=== PATIENT | male | born 1990 | race Caucasian/White ===

== ENCOUNTER 2017-10-10 12:44 | Emergency (ER) | payer OTHER ==
[2017-10-10 13:18] VITALS: BP 115/72; PULSE 82; RESP 18; TEMP 98.8
--- NOTE | 2017-10-10 13:57 | ED ---
General Adult HPI - General Chief complaint: ENT Stated complaint: ear infection Time Seen by Provider: 10/10/17 13:30 Source: patient, RN notes reviewed Mode of arrival: ambulatory Limitations: no limitations - History of Present Illness Initial comments: 27-year-old male presents to the emergency department for chief complaint of right ear pain. Patient states it started to feel plugged yesterday and the pain started when he woke up this morning. Patient states she has had congestion for about one week. He states the congestion is getting better but the ear pain is new. Patient denies any cough or shortness of breath. Patient denies any sore throat or eye pain. Patient denies asthma but he is a smoker. Patient has no other complaints at this time. Patient denies fevers at home. Patient denies shortness of breath, chest pain, abdominal pain, nausea or vomiting. - Related Data Previous Rx's Medication Instructions Recorded Ciprofloxacin HCl [Cipro] 500 mg PO Q12HR #6 tablet 07/18/15 Ondansetron Odt [Zofran ODT] 4 mg PO Q8HR PRN #5 tab 07/18/15 Amoxicillin 875 mg PO Q12HR #20 tablet 10/10/17 Fluticasone Nasal [place] [Flonase 2 spr EA NOSTRIL DAILY #1 bottle 10/10/17 Nasal [place]] Allergies Allergy/AdvReac Type Severity Reaction Status Date / Time No Known Allergies Allergy Verified 10/10/17 13:16 Review of Systems ROS Statement: Those systems with pertinent positive or pertinent negative responses have been documented in the HPI. ROS Other: All systems not noted in ROS Statement are negative. Past Medical History Additional Past Medical History / Comment(s): back pain History of Any Multi-Drug Resistant Organisms: None Reported Past Surgical History: No Surgical Hx Reported Past Psychological History: No Psychological Hx Reported Smoking Status: Former smoker Past Alcohol Use History: None Reported Past Drug Use History: None Reported General Exam Limitations: no limitations General appearance: alert, in no apparent distress Head exam: Present: atraumatic, normocephalic, normal inspection Eye exam: Present: normal appearance, PERRL, EOMI. Absent: scleral icterus, conjunctival injection, periorbital swelling ENT exam: Present: normal oropharynx, mucous membranes moist. Absent: TM's normal bilaterally (Right tympanic membrane appears erythematous and bulging slightly.) Neck exam: Present: normal inspection. Absent: tenderness, meningismus, lymphadenopathy Respiratory exam: Present: normal lung sounds bilaterally. Absent: respiratory distress, wheezes, rales, rhonchi, stridor Cardiovascular Exam: Present: regular rate, normal rhythm, normal heart sounds. Absent: systolic murmur, diastolic murmur, rubs, gallop, clicks Course Vital Signs 10/10/17 13:16 Temperature 98.8 F Pulse Rate 82 Respiratory 18 Rate Blood Pressure 115/72 O2 Sat by Pulse 98 Oximetry Medical Decision Making - Medical Decision Making 27-year-old male presents to the emergency department for a chief complaint of right ear pain x2 days. No fevers at home. Patient had congestion for about 2 weeks. Patient denies any other complaints including cough, shortness of breath , sore throat, ear pain. Patient states the congestion is getting better but the ear pain is new. On exam the right tympanic membrane appears slightly erythematous and is slightly bulging. He will be treated with amoxicillin and Flonase. He is to follow up with primary care in 1-2 days. He is to return to the emergency department if he has any worsening symptoms or develops high fevers. Disposition Clinical Impression: Otitis media Disposition: HOME SELF-CARE Condition: Good Instructions: Otitis Media (ED) Additional Instructions: Please follow up with primary care in 1-2 days. Return to the emergency department if symptoms worsen or he began to develop high fevers. Otherwise take antibiotic and Flonase as directed. Prescriptions: Amoxicillin 875 mg PO Q12HR #20 tablet Fluticasone Nasal [place] [Flonase Nasal [place]] 2 spr EA NOSTRIL DAILY #1 bottle Is patient prescribed a controlled substance at discharge?: No Referrals: None,Stated [Primary Care Provider] - 1-2 days
== END 2017-10-10 14:12 | disposition home or self-care (01) ==
LOC: EC 12:44
DX: H66.91 Otitis media, unspecified, right ear (principal); R09.89 Other specified symptoms and signs involving the circulatory and respiratory systems; F17.200 Nicotine dependence, unspecified, uncomplicated
CPT/HCPCS: 99282